=== PATIENT | female | born 1985 | race Caucasian/White ===

== ENCOUNTER 2018-03-13 15:08 | Emergency (ER) | payer OTHER ==
[2018-03-13] MEDS ORDERED: Iohexol 240 (50 ml) PO STA (15:50)
[2018-03-13] MEDS ORDERED: Sodium Chloride 0.9% 1,000 ML IV STA (15:52)
--- NOTE | 2018-03-13 16:03 | ED PDOC ---
HPI: Abdomen Time Seen by Provider: 03/13/18 15:30 Chief Complaint (Nursing): Abdominal Pain Chief Complaint (Provider): Abdominal pain History Per: Patient History/Exam Limitations: no limitations Onset/Duration Of Symptoms: Days, Waxing/Waning, Intermittent Episodes, Persistent Current Symptoms Are (Timing): Still Present Location Of Pain/Discomfort: Diffuse Quality Of Discomfort: "Pain" Associated Symptoms: Nausea. denies: Fever, Chills, Vomiting, Urinary Symptoms Additional History Per: Patient Additional Complaint(s): 33yo female, comes to ER reporting abdominal pain x 5 days. She states initially the pain was more of a "discomfort" and was associated with back pain; she reports the pain lasted a couple minutes and then spontaneously resolved. She reports several such episodes over the next 3 days, and states today when the episodes occurred, they have been more severe and that she is unable to stay sitting up. Patient states the pain still resolves spontaneously but is much more intense and is waxing and waning. She is unable to localize the pain; otherwise patient states she is able to tolerate PO intake and only has mild nausea. She denies any fever, vomiting, chills, urine symptoms, vaginal bleeding or discharge. She states she was evaluated at an urgent care center associated with her work, had a urinalysis done and was given Ibuprofen; she was informed to come to the ER for further evaluation. PMD: Dr. Gaffney Abnormal Vaginal Bleeding: No Past Medical History Reviewed: Historical Data, Nursing Documentation, Vital Signs Vital Signs: Last Vital Signs Temp 98.8 F 03/13/18 15:16 Pulse 89 03/13/18 15:16 Resp 16 03/13/18 15:16 BP 111/65 03/13/18 15:16 Pulse Ox 100 03/13/18 15:16 - Medical History PMH: No Chronic Diseases Denies: Chronic Kidney Disease - Surgical History Surgical History: Tonsillectomy Other surgeries: left ectopic surgery - Family History Family History: States: Hypertension Other Family History: galbladder disease - Home Medications Home Medications: Ambulatory Orders Medication Instructions Recorded Nutriceutical1 [Probiotic Formula] 1 cap PO DAILY 01/03/14 RX: Ibuprofen [Motrin Tab] 600 mg PO Q8 PRN #30 tab 03/13/18 - Allergies Allergies/Adverse Reactions: Allergies Allergy/AdvReac Type Severity Reaction Status Date / Time No Known Allergies Allergy Verified 03/13/18 15:15 Review of Systems ROS Statement: Except As Marked, All Systems Reviewed And Found Negative Constitutional: Negative for: Fever, Chills Gastrointestinal: Positive for: Nausea, Abdominal Pain. Negative for: Vomiting, Diarrhea Genitourinary Female: Negative for: Dysuria, Vaginal Discharge, Vaginal Bleeding Physical Exam - Reviewed Nursing Documentation Reviewed: Yes - Physical Exam Appears: Positive for: No Acute Distress Head Exam: Positive for: ATRAUMATIC, NORMOCEPHALIC Skin: Positive for: Warm, Dry Eye Exam: Positive for: EOMI, PERRL ENT: Negative for: Pharyngeal Erythema, Tonsillar Exudate Neck: Positive for: Normal. Negative for: Limited ROM Cardiovascular/Chest: Positive for: Regular Rate, Rhythm. Negative for: Murmur Respiratory: Positive for: Normal Breath Sounds. Negative for: Wheezing Gastrointestinal/Abdominal: Positive for: Soft, Tenderness (tenderness to deep palpation of right lower quadrant; negative McBurney's point tenderness; negative Rhoades's sign). Negative for: Mass, Distended, Guarding, Rebound Back: Negative for: L CVA Tenderness, R CVA Tenderness Extremity: Positive for: Normal ROM. Negative for: Deformity - Laboratory Results Result Diagrams: 03/13/18 16:27 03/13/18 16:27 - ECG O2 Sat by Pulse Oximetry: 100 (RA) Medical Decision Making Medical Decision Making: Impression: 33yo female, with abdominal pain Differential: Including but not limited to colitis, diverticulitis, appendicitis, ovarian cysts, kidney stone Plan: -- Labs -- Iv Fluids -- CT Abdomen/Pelvis w/ PO & IV contrast 1650 Labs reviewed, patient with leukocytosis; no other clinically significant abnormalities noted Patient currently pending CT Accession No. : [id number] Patient Name / ID : LATRICE TRIMBLE / [id number] Exam Date : 03/13/2018 17:48:08 ( Approved ) Study Comment : Sex / Age : F / 55Y Creator : Car Hammer MD Dictator : Car Hammer MD Supervisor Graphite : Correctional Casework Specialist : Car Hammer MD Approver2 : Report Date : 03/13/2018 18:11:57 My Comment : Date of service: 03/13/2018 HISTORY: depression COMPARISON: No prior. TECHNIQUE: Chest PA and lateral FINDINGS: LUNGS: No active pulmonary disease. PLEURA: No significant pleural effusion identified. No pneumothorax apparent. CARDIOVASCULAR: No aortic atherosclerotic calcification present. Normal cardiac size. No pulmonary vascular congestion. OSSEOUS STRUCTURES: Thoracolumbar scoliosis. VISUALIZED UPPER ABDOMEN: For quadrant surgical clips. OTHER FINDINGS: None. IMPRESSION: No active disease. On reevaluation, pt continues to be in no distress. DW pt and family findings. Stable for discharge with [facility] followup. Scribe Attestation: Documented by Silvia Syed acting as a scribe for Ginny Sheehan MD. Provider Attestation: All medical record entries made by the Scribe were at my direction and personally dictated by me. I have reviewed the chart and agree that the record accurately reflects my personal performance of the history, physical exam, medical decision making, and the department course for this patient. I have also personally directed, reviewed, and agree with the discharge instructions and disposition. Disposition - Clinical Impression Clinical Impression: Abdominal pain, Ovarian cyst Counseled Patient/Family Regarding: Studies Performed, Diagnosis, Need For Followup, Rx Given - Disposition Referrals: Mehdi Puentes DO [Staff Provider] - Disposition: Routine/Home Disposition Time: 19:09 Condition: STABLE Additional Instructions: FOLLOW UP WITH GYNECOLOGY IN 1-2 WEEKS FOR REEVALUATION Prescriptions: RX: Ibuprofen [Motrin Tab] 600 mg PO Q8 PRN #30 tab PRN Reason: Pain, Moderate (4-7) Instructions: Acute Abdomen (Belly Pain), Ovarian Cyst (DC) Forms: [employer] (Khmer), [employer] ED School/Work Excuse
[2018-03-13] MEDS ORDERED: Iohexol 240 (50 ml) ONE (16:15)
[2018-03-13 16:36] LABS: BASO % 0.3 % (0.0-2.0); EOS # 0.3 K/uL (0.0-0.7); EOS % 2.4 % (0.0-4.0); HEMOGLOBIN 12.4 g/dL (12.0-16.0); LYMPH # 2.4 K/uL (1.0-4.3); LYMPH % 18.1 % (20.0-40.0); MEAN CELL VOLUME 79.4 fl (81.0-99.0); MEAN CORPUSCULAR HEMOGLOBIN 26.3 pg (27.0-31.0); MEAN CORPUSCULAR HGB CONC 33.1 g/dL (33.0-37.0); MEAN PLATELET VOLUME 7.7 fl (7.2-11.7); MONO # 0.6 K/uL (0.0-0.8); MONO % 4.3 % (0.0-10.0); NEUT # 9.9 K/uL (1.8-7.0); NEUT % 74.9 % (50.0-75.0); RBC 4.7 Mil/uL (3.80-5.20); RED CELL DISTRIBUTION WIDTH 14.2 % (11.5-14.5); WHITE BLOOD COUNT 13.3 K/uL (4.8-10.8)
[2018-03-13 16:44] LABS: ALB/GLOB RATIO 1.3 (1.0-2.1); ALBUMIN 4.5 g/dL (3.5-5.0); ALT/SGPT 22 U/L (9-52); AST/SGOT 20 U/L (14-36); BLOOD UREA NITROGEN 10 mg/dl (7-17); CALCIUM 9.6 mg/dL (8.4-10.2); GFR NON-AFRICAN AMERICAN > 60; LIPASE 62 U/L (23-300)
[2018-03-13] MEDS ORDERED: Iohexol 300 100 ML IJ ONE (17:13)
[2018-03-13] MEDS ORDERED: Sodium Chloride 0.9% 50 ML IV ONE (17:14)
--- NOTE | 2018-03-13 18:26 | CT ---
Date of service: 03/13/2018 PROCEDURE: CT Abdomen and Pelvis with contrast HISTORY: abdominal pain COMPARISON: None. TECHNIQUE: Contrast dose: 90 mL Omnipaque 300 Radiation dose: Total exam DLP = 377.13 mGy-cm. This CT exam was performed using one or more of the following dose reduction techniques: Automated exposure control, adjustment of the mA and/or kV according to patient size, and/or use of iterative reconstruction technique. FINDINGS: LOWER THORAX: Unremarkable. LIVER: Unremarkable. No gross lesion or ductal dilatation. GALLBLADDER AND BILE DUCTS: Unremarkable. PANCREAS: Unremarkable. No gross lesion or ductal dilatation. SPLEEN: Unremarkable. ADRENALS: Unremarkable. No mass. KIDNEYS AND URETERS: Tiny bilateral renal cysts. No hydronephrosis. No solid mass. VASCULATURE: Unremarkable. No aortic aneurysm. No aortic atherosclerotic calcification or mural plaque present. BOWEL: Unremarkable. No obstruction. No gross mural thickening. APPENDIX: Normal appendix. PERITONEUM: Unremarkable. No free fluid. No free air. LYMPH NODES: Unremarkable. No enlarged lymph nodes. BLADDER: Distended. REPRODUCTIVE: Right ovarian 1.9 cm dominant follicle. BONES: No acute fracture. OTHER FINDINGS: None. IMPRESSION: No acute abdominal pelvic pathology. 1.9 cm right ovarian dominant follicle.
[2018-03-13 19:45] VITALS: BP 129/70; PULSE 72; RESP 18; TEMP 98.6
[2018-03-13 20:39] VITALS: O2SAT 100
== END 2018-03-13 19:45 | disposition home or self-care (01) ==
LOC: H.ER 15:08
DX: R10.9 Unspecified abdominal pain (principal); N83.209 Unspecified ovarian cyst, unspecified side
CPT/HCPCS: 74177; 80053; 81025; 83690; 84702; 85025; 96360; 99284; J7030; Q9966; Q9967